=== PATIENT | female | born 1985 | race Caucasian/White ===

== ENCOUNTER 2018-04-01 20:10 | Inpatient (IN) | payer BC ==
[~2018-04-01] VITALS: Ht 165.1 cm; Wt 89.0 kg
[2018-04-01] MEDS ORDERED: LACTATED RINGERS 1,000 ML IV SCH (20:37)
[2018-04-01] MEDS ORDERED: OXYTOCIN 30U/ 0.9% NaCL 500ML 500 ML IV ONE (20:37)
[2018-04-01] MEDS ORDERED: D5%-LACTATED RINGERS 1,000 ML IV SCH (20:37)
[2018-04-01] MEDS ORDERED: OXYTOCIN 30U/ 0.9% NaCL 500ML 500 ML IV PRN (20:37)
[2018-04-01] MEDS ORDERED: MISOPROSTOL 200 MCG TABLET ONE (20:43)
[2018-04-01] MEDS ORDERED: NEWBORN KIT ONE (20:44)
[2018-04-01] MEDS ORDERED: OXYTOCIN 30U/ 0.9% NaCL 500ML 500 ML ONE (20:44)
[2018-04-01 20:54] LABS: BASOPHILS # (AUTO) 0.05 x10^3/uL (0-0.1); BASOPHILS % (AUTO) 0 % (0-1); EOSINOPHILS # (AUTO) 0.09 x10^3/uL (0-0.4); EOSINOPHILS % (AUTO) 1 % (1-7); LYMPHOCYTES # (AUTO) 2.88 x10^3/uL (1-3.4); LYMPHOCYTES % (AUTO) 24 % (22-44); MD NO; MEAN CORPUSCULAR HEMOGLOBIN 32.4 pg (27.0-34.8); MEAN CORPUSCULAR VOLUME 95.2 fL (80-100); MONOCYTES % (AUTO) 6 % (2-9); NEUTROPHILS # (AUTO) 8.46 x10^3/uL (1.8-6.8); NEUTROPHILS % (AUTO) 70 % (42-75); PLATELET COUNT 220 x10^3/uL (130-400); RED BLOOD COUNT 4.18 x10^6/uL (3.82-5.3); RED CELL DISTRIBUTION WIDTH 15.3 % (9.6-15.2)
[2018-04-01] MEDS ORDERED: FENTANYL PF 100 MCG/2ML IV PRN (21:00)
[2018-04-01] MEDS ORDERED: CALCIUM CARBONATE 500 MG TAB.CHEW PO PRN (21:00)
[2018-04-01] MEDS ORDERED: SODIUM CITRATE/CITRIC ACID 30 ML UDC PO PRN (21:00)
[2018-04-01] MEDS: PLEASE ENTER HEIGHT AND WEIGHT MC SCH (21:00)
[2018-04-01] MEDS ORDERED: ALUMINUM/MAG/SIMETHICONE 30 ML UDC PO PRN (21:00)
[2018-04-01] MEDS ORDERED: TERBUTALINE 1 MG/ML, 1ML SQ PRN (21:00)
[2018-04-01] MEDS ORDERED: TERBUTALINE 1 MG/ML, 1ML IVPush PRN ×2 (21:00)
[2018-04-01] MEDS ORDERED: ONDANSETRON 2MG/ML, 2ML IVPush PRN (21:00)
[2018-04-01] MEDS ORDERED: SODIUM CHLORIDE FLUSH 10ML SYR IVF PRN (21:00)
[2018-04-01] MEDS ORDERED: FENTANYL PF 100 MCG/2ML IVPush PRN (21:00)
[2018-04-01] MEDS ORDERED: METOCLOPRAMIDE 5 MG/ML, 2ML IVPush PRN (21:00)
[2018-04-01] MEDS: PLEASE ENTER ALLERGIES MC SCH (21:00)
[2018-04-01 21:42] VITALS: BP 103/72
[2018-04-01] MEDS ORDERED: FENTANYL PF 100 MCG/2ML ONE (22:47)
[2018-04-01] MEDS ORDERED: FENTANYL/BUPIV./NS/PF 250 ML EPIDCONT SCH (23:05)
[2018-04-02] MEDS ORDERED: LACTATED RINGERS 1,000 ML IV SCH (00:16)
[2018-04-02] MEDS ORDERED: FENTANYL/BUPIV./NS/PF 250 ML EPIDCONT SCH (00:16)
[2018-04-02] MEDS ORDERED: NALOXONE 0.4 MG/ML, 1ML IVPush PRN (00:30)
[2018-04-02] MEDS ORDERED: EPHEDRINE 50 MG/ML, 1ML IVPush PRN (00:30)
[2018-04-02] MEDS ORDERED: LACTATED RINGERS 1,000 ML IVBOLUS PRN (00:30)
[2018-04-02] MEDS ORDERED: ONDANSETRON 2MG/ML, 2ML ONE (03:38)
[2018-04-02] MEDS: PLEASE ENTER HEIGHT AND WEIGHT MC SCH ×2 (05:00→13:00)
[2018-04-02] MEDS: PLEASE ENTER ALLERGIES MC SCH ×2 (05:00→13:00)
[2018-04-02] MEDS ORDERED: OXYTOCIN 30U/ 0.9% NaCL 500ML 500 ML IV SCH (13:09)
[2018-04-02] MEDS ORDERED: MEASLES,MUMPS&RUBELLA VACC/PF 0.5 ML SQ-VACC PRN (13:30)
[2018-04-02] MEDS ORDERED: MAGNESIUM HYDROXIDE 8%, 30ML UDC PO PRN (13:30)
[2018-04-02] MEDS ORDERED: ACETAMINOPHEN 325 MG TABLET PO PRN ×2 (13:30)
[2018-04-02] MEDS ORDERED: MISOPROSTOL 200 MCG TABLET PR PRN (13:30)
[2018-04-02] MEDS ORDERED: DIPH,PERTUSS(ACELL),TET VAC/PF NC IM-VACC PRN (13:30)
[2018-04-02] MEDS ORDERED: RHOGAM FROM BLOOD BANK 1 NOTE EA IM/IV ONE (13:30)
[2018-04-02] MEDS ORDERED: CALCIUM CARBONATE 500 MG TAB.CHEW PO PRN (13:30)
[2018-04-02] MEDS ORDERED: ONDANSETRON 2MG/ML, 2ML IV PRN (13:30)
[2018-04-02] MEDS ORDERED: IBUPROFEN 600 MG TABLET ONE (14:34)
[2018-04-02] MEDS ORDERED: OXYcodone/APAP 5/325MG TABLET ONE ×2 (14:35→16:05)
[2018-04-02] MEDS: IBUPROFEN 600 MG TABLET PO PRN ×2 (14:36→20:40)
[2018-04-02] MEDS: OXYcodone/APAP 5/325MG TABLET PO PRN ×4 (14:36→21:17)
[2018-04-02 16:30] VITALS: BP 122/79
[2018-04-02 20:00] VITALS: BP 95/61
[2018-04-02] MEDS: DOCUSATE 100 MG CAPSULE PO PRN (21:23)
[2018-04-02 21:28] LABS: MEAN CORPUSCULAR HEMOGLOBIN 32.9 pg (27.0-34.8); MEAN CORPUSCULAR HGB CONC 34.5 g/dL (32.4-35.8); MEAN CORPUSCULAR VOLUME 95.4 fL (80-100); PLATELET COUNT 177 x10^3/uL (130-400); RED BLOOD COUNT 3.21 x10^6/uL (3.82-5.3); RED CELL DISTRIBUTION WIDTH 14.9 % (9.6-15.2)
[2018-04-02 21:46] LABS: BASOPHILS # (AUTO) 0.08 x10^3/uL (0-0.1); BASOPHILS % (AUTO) 0 % (0-1); EOSINOPHILS # (AUTO) 0.11 x10^3/uL (0-0.4); EOSINOPHILS % (AUTO) 1 % (1-7); LYMPHOCYTES # (AUTO) 2.96 x10^3/uL (1-3.4); LYMPHOCYTES % (AUTO) 14 % (22-44); MD SCAN; MONOCYTES # (AUTO) 0.71 x10^3/uL (0.2-0.8); MONOCYTES % (AUTO) 4 % (2-9); NEUTROPHILS # (AUTO) 16.64 x10^3/uL (1.8-6.8); NEUTROPHILS % (AUTO) 81 % (42-75)
[2018-04-03 00:03] VITALS: BP 97/65
[2018-04-03] MEDS: OXYcodone/APAP 5/325MG TABLET PO PRN ×4 (01:52→21:06)
[2018-04-03] MEDS: IBUPROFEN 600 MG TABLET PO PRN ×4 (03:34→21:06)
[2018-04-03 03:57] VITALS: BP 98/65
[2018-04-03 09:00] VITALS: BP 100/54
[2018-04-03] MEDS: PRENATAL VIT/IRON/FA 1 EACH TABLET PO SCH (09:00)
[2018-04-03] MEDS: DOCUSATE 100 MG CAPSULE PO PRN ×2 (09:19→21:06)
[2018-04-03] MEDS ORDERED: IBUP-1222 PO (11:55)
[2018-04-03] MEDS ORDERED: OXYC-302 PO (11:55)
[2018-04-03 12:10] VITALS: BP 93/61
[2018-04-03 19:40] VITALS: BP 103/67
[2018-04-04] MEDS: IBUPROFEN 600 MG TABLET PO PRN ×2 (04:13→11:13)
[2018-04-04] MEDS: OXYcodone/APAP 5/325MG TABLET PO PRN ×2 (04:13→11:13)
[2018-04-04 08:05] VITALS: BP 100/63
[2018-04-04] MEDS: DOCUSATE 100 MG CAPSULE PO PRN (08:35)
[2018-04-04] MEDS: PRENATAL VIT/IRON/FA 1 EACH TABLET PO SCH (09:00)
== END 2018-04-04 13:50 | disposition home or self-care (01) | DRG 807 ==
LOC: LDOP 20:10 → LDIP 20:42 → 2NW 04-02 16:20
PROVIDERS: ADMIT Obstetrics & Gynecology; ATTEND Obstetrics & Gynecology
PROC: 10E0XZZ Delivery of Products of Conception, External Approach (ICD-10-PCS; principal; 2018-04-03)
PROC: 0KQM0ZZ Repair Perineum Muscle, Open Approach (ICD-10-PCS; 2018-04-03)
PROC: 10H07YZ Insertion of Other Device into Products of Conception, Via Natural or Artificial Opening (ICD-10-PCS; 2018-04-03)
PROC: 3E0R3BZ Introduction of Anesthetic Agent into Spinal Canal, Percutaneous Approach (ICD-10-PCS; 2018-04-03)
PROC: 00HU33Z Insertion of Infusion Device into Spinal Canal, Percutaneous Approach (ICD-10-PCS; 2018-04-03)
PROC: 0W8NXZZ Division of Female Perineum, External Approach (ICD-10-PCS; 2018-04-03)
DX: O69.81X0 Labor and delivery complicated by cord around neck, without compression, not applicable or unspecified (principal); Z37.0 Single live birth; Z3A.39 39 weeks gestation of pregnancy; O76 Abnormality in fetal heart rate and rhythm complicating labor and delivery; O70.1 Second degree perineal laceration during delivery
CPT/HCPCS: 36415; J7121; 82803; 85025; 86850; 86900; G0378; J2405; J3010; J2590; J7120